=== PATIENT | female | born 1970 | race Two or more races ===

== ENCOUNTER 2019-12-19 14:22 | Inpatient (IN) | payer OTHER ==
--- NOTE | 2019-12-19 15:18 | BHS.RME ---
Substance Use & Tx History - Substance Use History Alcohol Substance amount: 6-7 x 24 ounce beers Frequency of use: Daily Substance route: Oral Date of Last Use: 12/18/19 (First drink age 19y. No seizures. No blackouts. Admits to [employer]) - Last Treatment Date of last treatment: Emergency Department [facility]: suicidal ideation, abdominal pain Where was last treatment: ER Physical/Psych/Mental Status - Behavior General Behavior: Increased activity (restlessness, agitation) Eye Contact: Normal - Cooperativeness Cooperativeness: Cooperative - Thinking Thought Processes: Tight Thought content: Future oriented - Physical Health Problems Is patient presently having any pain?: Yes (fractured left foot one year ago) Does patient presently have any injuries (include location): No Does patient currently have a fever: No CIWA Nausea/Vomitin Muscle Tremors: 4-Moderate,w/Arms Extend Anxiety: 2 Agitation: 1-Slight > Activity Paroxysmal Sweats: 3 Orientation: 2-Disoriented Date<2 days Tacttile Disturbances: 0-None Auditory Disturbances: 0-None Visual Disturbances: 0-None Headache: 0-None Present CIWA-Ar Total Score: 14
[2019-12-19 16:17] VITALS: BMI 22.6
--- NOTE | 2019-12-19 17:20 | HP ---
CIWA Score Nausea/Vomitin Muscle Tremors: 4-Moderate,w/Arms Extend Anxiety: 2 Agitation: 1-Slight > Activity Paroxysmal Sweats: 3 Orientation: 2-Disoriented Date<2 days Tacttile Disturbances: 0-None Auditory Disturbances: 0-None Visual Disturbances: 0-None Headache: 0-None Present CIWA-Ar Total Score: 14 - Admission Criteria OASAS Guidelines: Admission for Medically Managed Detox: Requires at least one of the followin. CIWA greater than 12 2. Seizures within the past 24 hours 3. Delirium tremens within the past 24 hours 4. Hallucinations within the past 24 hours 5. Acute intervention needed for co occurring medical disorder 6. Acute intervention needed for co occurring psychiatric disorder 7. Severe withdrawal that cannot be handled at a lower level of care (continued vomiting, continued diarrhea, abnormal vital signs) requiring intravenous medication and/or fluids 8. Admitting History and Physical - Primary Care Physician PCP: Dr Romain Dunn away - Admission Chief Complaint: i want detox. History of Present Illness: Pt is a 49 y/o female with PMHx of HTN, anemia, presented to [facility] for alcohol detox. Started alcohol since age 29. Drinks about 7-8 beers daily.Denies aD last drink was early this morning.Denies any seizures or DT. Has been in detox 3 times before. History Source: Patient Limitations to Obtaining History: No Limitations - Past Medical History Cardiovascular: Yes: HTN ...LMP Comment: (last month)not remember the date ...: No ...: 5 ...Para: 3 Heme/Onc: Yes: Anemia (history of blood transfusion 4-5 years ago.) Psych: Yes: Addictions (alcohol use disorder.) Musculoskeletal: Yes: Other (sp fall 5 months ago, with right ankle fracture.) - Past Surgical History Past Surgical History: Yes: None - Smoking History Smoking history: Current some day smoker (smonke once in a while, last smoke was a month ago.) - Alcohol/Substance Use Hx Alcohol Use: Yes Number of Drinks Daily: 8 - Social History Usual Living Arrangement: Yes: Other Do you think of yourself as: Straight/Heterosexual ADL: Independent History of Recent Travel: No Admission ROS BHS - HPI Chief Complaint: i want detox. Allergies/Adverse Reactions: Allergies Allergy/AdvReac Type Severity Reaction Status Date / Time Fish Containing Products Allergy Verified 12/19/19 17:33 History of Present Illness: Pt is a 49 y/o female with PMHx of HTN, anemia, presented to [facility] for alcohol detox. Started alcohol since age 29. Drinks about 7-8 beers daily.Denies aD last drink was early this morning.Denies any seizures or DT. Has been in detox 3 times before. - Ebola screening Have you traveled outside of the country in the last 21 days: No Have you had contact with anyone from an Ebola affected area: No Have you been sick,other than usual withdrawal symptoms: No Do you have a fever: No - Review of Systems GI: reports: Diarrhea Musculoskeletal: reports: Joint Pain (right ankle pain. SP fall 5 months.) Patient History - Smoking Cessation Smoking history: Never smoked Admission Physical Exam S - Vital Signs Vital Signs: Vital Signs - 24 hr 12/19/19 16:16 Temperature 96.1 F L Pulse Rate 88 Respiratory 18 Rate Blood Pressure 145/101 H Cleared for Admission [facility] - Detox or Rehab Detox Regimen/Protocol: Librium Breathalyzer - Breathalyzer Breathalyzer: 0 Urine Drug Screen - Test Device Lot number: [id number] Expiration date: 01/26/21 - Control Is test valid?: Yes - Results Drug screen NEGATIVE: No Urine drug screen results: BZO-Benzodiazepines Inpatient Rehab Admission - Rehab Decision to Admit Inpatient rehab admission?: No
[2019-12-19] MEDS ORDERED: chlordiazePOXIDE HCL 10 MG CAPSULE PO PRN (17:33)
[2019-12-19] MEDS ORDERED: MAGNESIUM CITRATE 300 ML BOTTLE PO PRN (17:52)
[2019-12-19] MEDS ORDERED: ACETAMINOPHEN 325 MG TABLET (FP) PO PRN ×2 (17:52)
[2019-12-19] MEDS ORDERED: BISMUTH SUBSALICYLATE 524 MG/30 ML UD PO PRN (17:52)
[2019-12-19] MEDS ORDERED: NICOTINE POLACRILEX 2 MG GUM BUC PRN (17:52)
[2019-12-19] MEDS ORDERED: IBUPROFEN 400 MG TABLET (FP) PO PRN (17:52)
[2019-12-19] MEDS ORDERED: MENTHOL/PHENOL 1 EACH UD MM PRN (17:52)
[2019-12-19] MEDS ORDERED: MAGNESIUM HYDROX 2400MG/30ML ORAL SUSPENSION 30 ML CUP PO PRN (17:52)
[2019-12-19] MEDS ORDERED: METHOCARBAMOL 500 MG TABLET PO PRN (17:52)
[2019-12-19] MEDS ORDERED: MAG HYDROX/AL HYDROX/SIMETH 30 ML UNIT-DOSE CUP PO PRN (17:52)
[2019-12-19] MEDS ORDERED: ONDANSETRON *ODT* 4 MG TABLET SL ONE (18:15)
[2019-12-19] MEDS: hydrOXYzine PAMOATE 25 MG CAPSULE (FP) PO SCH ×2 (19:12→22:33)
[2019-12-19] MEDS ORDERED: cloNIDine HCL 0.1 MG TABLET PO ONE (19:33)
--- NOTE | 2019-12-19 19:36 | PN ---
S Progress Note Note: Patient's blood pressure is B/P 161/112. Patient is asymptomatic Vital Signs Temperature 97.8 F 12/19/19 18:55 Pulse Rate 86 12/19/19 18:55 Respiratory Rate 18 12/19/19 18:55 Blood Pressure 161/112 H 12/19/19 18:55 O2 Sat by Pulse Oximetry (%) 97 12/19/19 18:55 Action: Clonidine 0.1mg tablet oral ordered
[2019-12-19] MEDS ORDERED: THIAMINE HCL 100 MG TABLET (FP) PO SCH (22:00)
[2019-12-19] MEDS ORDERED: MELATONIN 5 MG TABLETS PO SCH (22:00)
[2019-12-19] MEDS: chlordiazePOXIDE HCL 25 MG CAPSULE PO SCH (22:34)
[2019-12-20] MEDS: chlordiazePOXIDE HCL 25 MG CAPSULE PO SCH ×2 (05:59→13:46)
[2019-12-20] MEDS: hydrOXYzine PAMOATE 25 MG CAPSULE (FP) PO SCH ×3 (06:00→14:02)
[2019-12-20 06:30] VITALS: BP 107/72
[2019-12-20 09:09] VITALS: PULSE 81; TEMP 97.3
[2019-12-20] MEDS ORDERED: metoPROLOL SUCCINATE 25 MG TAB.SR.24H (FP) PO SCH (10:00)
[2019-12-20] MEDS ORDERED: HYDROCHLOROTHIAZIDE 12.5 MG CAPSULE (FP) PO SCH (10:00)
[2019-12-20] MEDS ORDERED: NICOTINE 7 MG/24 HOURS TOPICAL PATCH TD SCH (10:00)
[2019-12-20] MEDS ORDERED: PRENATAL VITAMINS W/ FOLIC ACID TABLET (FP) PO SCH (10:00)
[2019-12-20 10:24] LABS: HEMOGLOBIN 8.7 GM/dL (10.7-15.3); MCH 23.2 pg (25.7-33.7); MEAN CELL VOLUME 74.6 fl (80-96); MEAN PLT VOLUME 8.6 fl (7.5-11.1); PLATELET COUNT 62 K/MM3 (134-434); RBC 3.75 M/mm3 (3.60-5.2); RDW 23.4 % (11.6-15.6); WHITE BLOOD COUNT 2.4 K/mm3 (4.0-10.0)
[2019-12-20 10:40] LABS: BILIRUBIN,TOTAL 1.9 mg/dL (0.2-1); BLOOD UREA NITROGEN 5.4 mg/dL (7-18); CALCIUM 8.5 mg/dL (8.5-10.1); CREATININE 0.7 mg/dL (0.55-1.3); POTASSIUM 3.2 mmol/L (3.5-5.1); TOT PROT 7.1 g/dl (6.4-8.2)
--- NOTE | 2019-12-20 11:11 | PN ---
[facility] CIWA - CIWA Score Nausea/Vomitin-Mild Nausea/No Vomiting Muscle Tremors: 2 Anxiety: 1-Mildly Anxious Agitation: 0-Normal Activity Paroxysmal Sweats: No Perspiration Orientation: 1-Uncertain about Date Tacttile Disturbances: 0-None Auditory Disturbances: 0-None Visual Disturbances: 0-None Headache: 3-Moderate CIWA-Ar Total Score: 8 S Progress Note (SOAP) Subjective: Pt has moderate headache, nausea, tremor, anxiety Objective: 12/20/19 11:10 PE Gnl: WDWN, in no distress Mentation: nl Motor; moves limbs well Gait; steady Laboratory Results - last 24 hr 12/20/19 12/20/19 08:15 08:15 WBC 2.4 L RBC 3.75 Hgb 8.7 L Hct 28.0 L MCV 74.6 L MCH 23.2 L MCHC 31.0 L RDW 23.4 H Plt Count 62 L MPV 8.6 Sodium 138 Potassium 3.2 L Chloride 103 Carbon Dioxide 26 Anion Gap 9 BUN 5.4 L Creatinine 0.7 Est GFR (CKD-EPI)AfAm 117.91 Est GFR (CKD-EPI)NonAf 101.74 Random Glucose 86 Calcium 8.5 Total Bilirubin 1.9 H AST 113 H ALT 50 Alkaline Phosphatase 150 H Total Protein 7.1 Albumin 3.0 L Active Medications Generic Name Dose Route Start Last Admin Trade Name Freq PRN Reason Stop Dose Admin Acetaminophen 650 mg 12/19/19 17:52 Tylenol - PO Q6H PRN PAIN LEVEL 4 - 6 Acetaminophen 650 mg 12/19/19 17:52 Tylenol - PO Q6H PRN FEVER Al Hydroxide/Mg Hydroxide 30 ml 12/19/19 17:52 Mylanta Oral Suspension - PO Q6H PRN DYSPEPSIA Bismuth Subsalicylate 524 mg 12/19/19 17:52 12/20/19 06:13 Pepto-Bismol - PO 524 mg Q1H PRN Administration DIARRHEA Chlordiazepoxide HCl 25 mg 12/19/19 21:00 12/20/19 05:59 Librium - PO 12/20/19 21:01 25 mg Q8H KAMRYN Administration Chlordiazepoxide HCl 10 mg 12/22/19 00:00 Librium - PO 12/22/19 23:59 Q12H PRN Signs/symptoms of Withdrawal Chlordiazepoxide HCl 10 mg 12/19/19 17:33 12/19/19 19:15 Librium - PO 12/21/19 23:59 10 mg Q8H PRN Administration Signs/symptoms of Withdrawal Chlordiazepoxide HCl 15 mg 12/21/19 05:00 Librium - PO 12/21/19 21:01 Q8H [facility] Chlordiazepoxide HCl 10 mg 12/22/19 05:00 Librium - PO 12/22/19 21:01 Q8H [facility] Chlordiazepoxide HCl 10 mg 12/23/19 05:00 Librium - PO 12/23/19 05:01 ONCE ONE Eucalyptus/Menthol/Phenol/Sorbitol 1 each 12/19/19 17:52 Cepastat Lozenge - MM 12/25/19 17:52 Q4H PRN SORE THROAT Hydrochlorothiazide 12.5 mg 12/20/19 10:00 12/20/19 11:03 Hctz - PO Not Given DAILY [facility] Hydroxyzine Pamoate 25 mg 12/19/19 18:00 12/20/19 11:01 Vistaril - PO 12/25/19 17:52 25 mg Q4HWA [facility] Administration Ibuprofen 400 mg 12/19/19 17:52 Motrin - PO Q6H PRN PAIN LEVEL 1 - 3 Magnesium Citrate 300 ml 12/19/19 17:52 Citroma - PO Q48H PRN CONSTIPATION Magnesium Hydroxide 30 ml 12/19/19 17:52 Milk Of Magnesia - PO PRN PRN CONSTIPATION Melatonin 5 mg 12/19/19 22:00 12/19/19 22:33 Melatonin PO 5 mg HS [facility] Administration Methocarbamol 500 mg 12/19/19 17:52 Robaxin - PO 12/25/19 17:52 Q6H PRN MUSCLE SPASMS Metoprolol Succinate 25 mg 12/20/19 10:00 12/20/19 11:01 Toprol Xl - PO 25 mg DAILY [facility] Administration Nicotine 7 mg 12/20/19 10:00 12/20/19 11:01 Nicoderm Patch - TD Not Given DAILY [facility] Nicotine Polacrilex 2 mg 12/19/19 17:52 Nicorette Gum - BUC Q2H PRN NICOTINE REPLACEMENT RX Multivit/Folic Acid/Iron 1 tab 12/20/19 10:00 12/20/19 11:03 Vitamins (Sjr) - PO 1 tab DAILY KAMRYN Administration Thiamine HCl 100 mg 12/19/19 22:00 12/19/19 22:33 Vitamin B1 - PO 100 mg HS KAMRYN Administration Vital Signs Temperature 97.3 F L 12/20/19 08:50 Pulse Rate 81 12/20/19 08:50 Respiratory Rate 16 12/20/19 08:50 Blood Pressure 107/72 12/20/19 08:50 O2 Sat by Pulse Oximetry (%) 100 12/20/19 08:50 Assessment: 12/20/19 11:09 1. Alcohol use disorder Plan: 1. Librium protocol, projected completion on 12/22, pt asking for early discharge tomorrow. Will discuss discharge with counselor Laura. From a medical standpoint, she will need to be evaluated in the morning to assess her withdrawal and then a decision about safety of discharge can be determined.
--- NOTE | 2019-12-20 11:19 | EKG ---
Test Reason : Blood Pressure : / mmHG Vent. Rate : 089 BPM Atrial Rate : 089 BPM P-R Int : 168 ms QRS Dur : 076 ms QT Int : 402 ms P-R-T Axes : 066 037 065 degrees QTc Int : 489 ms NORMAL SINUS RHYTHM WITH SINUS ARRHYTHMIA PROLONGED QT ABNORMAL ECG NO PREVIOUS ECGS AVAILABLE Confirmed by LEV TREVINO MD ([id number]) on 12/20/2019 11:19:49 AM Referred By: Confirmed By:LEV TREVINO MD
--- NOTE | 2019-12-20 13:20 | DS ---
[facility] Detox Discharge Summary Admission Date: 12/19/19 Discharge Date: 12/20/19 - History Present History: Alcohol Dependence Pertinent Past History: 49 yo woman with a hx of HTN and anemia presented on 12/18 requesting detox for alcohol use disorder. - Physical Exam Results Vital Signs: Vital Signs Temperature 97.3 F L 12/20/19 08:50 Pulse Rate 81 12/20/19 08:50 Respiratory Rate 16 12/20/19 08:50 Blood Pressure 107/72 12/20/19 08:50 O2 Sat by Pulse Oximetry (%) 100 12/20/19 08:50 Pertinent Admission Physical Exam Findings: PE Gnl: WDWN MS: awake, alert, nl language GAit: steady Coordination: nl Laboratory Tests 12/20/19 12/20/19 08:15 08:15 WBC 2.4 L RBC 3.75 Hgb 8.7 L Hct 28.0 L MCV 74.6 L MCH 23.2 L MCHC 31.0 L RDW 23.4 H Plt Count 62 L MPV 8.6 Sodium 138 Potassium 3.2 L Chloride 103 Carbon Dioxide 26 Anion Gap 9 BUN 5.4 L Creatinine 0.7 Est GFR (CKD-EPI)AfAm 117.91 Est GFR (CKD-EPI)NonAf 101.74 Random Glucose 86 Calcium 8.5 Total Bilirubin 1.9 H AST 113 H ALT 50 Alkaline Phosphatase 150 H Total Protein 7.1 Albumin 3.0 L Home Medication List Medication Instructions Recorded Confirmed Type Hydrochlorothiazide [Hctz -] 12.5 mg PO DAILY 12/19/19 12/19/19 History Metoprolol Succinate [Toprol Xl -] 25 mg PO DAILY 12/19/19 12/19/19 History Active Medications Generic Name Dose Route Start Last Admin Trade Name Freq PRN Reason Stop Dose Admin Acetaminophen 650 mg 12/19/19 17:52 Tylenol - PO Q6H PRN PAIN LEVEL 4 - 6 Acetaminophen 650 mg 12/19/19 17:52 Tylenol - PO Q6H PRN FEVER Al Hydroxide/Mg Hydroxide 30 ml 12/19/19 17:52 Mylanta Oral Suspension - PO Q6H PRN DYSPEPSIA Bismuth Subsalicylate 524 mg 12/19/19 17:52 12/20/19 06:13 Pepto-Bismol - PO 524 mg Q1H PRN Administration DIARRHEA Chlordiazepoxide HCl 25 mg 12/19/19 21:00 12/20/19 05:59 Librium - PO 12/20/19 21:01 25 mg Q8H KAMRYN Administration Chlordiazepoxide HCl 10 mg 12/22/19 00:00 Librium - PO 12/22/19 23:59 Q12H PRN Signs/symptoms of Withdrawal Chlordiazepoxide HCl 10 mg 12/19/19 17:33 12/19/19 19:15 Librium - PO 12/21/19 23:59 10 mg Q8H PRN Administration Signs/symptoms of Withdrawal Chlordiazepoxide HCl 15 mg 12/21/19 05:00 Librium - PO 12/21/19 21:01 Q8H KAMRYN Chlordiazepoxide HCl 10 mg 12/22/19 05:00 Librium - PO 12/22/19 21:01 Q8H KAMRYN Chlordiazepoxide HCl 10 mg 12/23/19 05:00 Librium - PO 12/23/19 05:01 ONCE ONE Eucalyptus/Menthol/Phenol/Sorbitol 1 each 12/19/19 17:52 Cepastat Lozenge - MM 12/25/19 17:52 Q4H PRN SORE THROAT Hydrochlorothiazide 12.5 mg 12/20/19 10:00 12/20/19 11:03 Hctz - PO Not Given DAILY [facility] Hydroxyzine Pamoate 25 mg 12/19/19 18:00 12/20/19 11:01 Vistaril - PO 12/25/19 17:52 25 mg Q4HWA KAMRYN Administration Ibuprofen 400 mg 12/19/19 17:52 Motrin - PO Q6H PRN PAIN LEVEL 1 - 3 Magnesium Citrate 300 ml 12/19/19 17:52 Citroma - PO Q48H PRN CONSTIPATION Magnesium Hydroxide 30 ml 12/19/19 17:52 Milk Of Magnesia - PO PRN PRN CONSTIPATION Melatonin 5 mg 12/19/19 22:00 12/19/19 22:33 Melatonin PO 5 mg HS KAMRYN Administration Methocarbamol 500 mg 12/19/19 17:52 Robaxin - PO 12/25/19 17:52 Q6H PRN MUSCLE SPASMS Metoprolol Succinate 25 mg 12/20/19 10:00 12/20/19 11:01 Toprol Xl - PO 25 mg DAILY KAMRYN Administration Nicotine 7 mg 12/20/19 10:00 12/20/19 11:01 Nicoderm Patch - TD Not Given DAILY KAMRYN Nicotine Polacrilex 2 mg 12/19/19 17:52 Nicorette Gum - BUC Q2H PRN NICOTINE REPLACEMENT RX Multivit/Folic Acid/Iron 1 tab 12/20/19 10:00 12/20/19 11:03 Vitamins (Sjr) - PO 1 tab DAILY KAMRYN Administration Thiamine HCl 100 mg 12/19/19 22:00 12/19/19 22:33 Vitamin B1 - PO 100 mg HS KAMRYN Administration Vital Signs Period Temp Pulse Resp BP Sys/Joseph Pulse Ox Last 24 Hr 96.1 F-97.8 F 78-88 16-18 107-161/72-112 97-100 Imp 1. Alcohol use disorder Plan 1. Pt insists on leaving stating "I have the right to sign out AMA", she states the reason being she talked to her mother and found out that her grandmother is sick. - Treatment Hospital Course: Detox Protocol Followed - Medication Discharge Medications: Ambulatory Orders Hydrochlorothiazide [Hctz -] 12.5 mg PO DAILY 12/19/19 Metoprolol Succinate [Toprol Xl -] 25 mg PO DAILY 12/19/19 - AMA Did Patient Leave Against Medical Advice: Yes
[2019-12-21] MEDS ORDERED: chlordiazePOXIDE 5 MG CAPSULE PO SCH (05:00)
[2019-12-22] MEDS ORDERED: chlordiazePOXIDE HCL 10 MG CAPSULE PO PRN
[2019-12-22] MEDS ORDERED: chlordiazePOXIDE HCL 10 MG CAPSULE PO SCH (05:00)
[2019-12-23] MEDS ORDERED: chlordiazePOXIDE HCL 10 MG CAPSULE PO ONE (05:00)
== END 2019-12-20 14:07 | disposition left against medical advice (07) | DRG 770 ==
LOC: YASAS 14:22 → Y3N 17:43
PROVIDERS: ADMIT Allergy & Immunology; ATTEND Allergy & Immunology
PROC: HZ2ZZZZ Detoxification Services for Substance Abuse Treatment (ICD-10-PCS; principal; 2019-12-19)
DX: F10.230 Alcohol dependence with withdrawal, uncomplicated (principal); F17.210 Nicotine dependence, cigarettes, uncomplicated; I10 Essential (primary) hypertension; D64.9 Anemia, unspecified; Z87.81 Personal history of (healed) traumatic fracture; Z91.013 Allergy to seafood
CPT/HCPCS: 36415; 80053; 85027; 86780; 93005; 93010; J0735; Q0162; U0003